=== PATIENT | male | born 1935 | race Caucasian/White ===

== ENCOUNTER 2016-10-06 07:35 | Inpatient (IN) | payer OTHER ==
[~2016-10-06] VITALS: Ht 175.3 cm; Wt 87.4 kg
[2016-10-06] VITALS (11 sets, daily range): BP systolic 119–173; BP diastolic 70–109
[~2016-10-06 07:35] MED LIST: CHOLESTEROL; HIGH BLOOD PRESSURE
[2016-10-06 09:07] LABS: HEMATOCRIT 45.3 % (38.0-50.0); MCH 30.9 PG (29.0-34.0); MCHC 34.9 G/DL (30.0-36.0); MCV 88.6 FL (86-99); MEAN PLAT.VOLUME 9.5 uM^3 (9.0-12.4); PLATELET COUNT 227 K/uL (156-360); RBC DIS.WIDTH-SD 41.7 % (39-53); RED BLOOD COUNT 5.11 M/uL (4.00-5.50); WHITE BLOOD COUNT 10.4 K/uL (4.1-10.2)
[2016-10-06 09:21] LABS: CHLORIDE 104 mEq/L (99-109); POTASSIUM 3.6 mEq/L (3.7-5.4); SODIUM 141 mEq/L (136-147)
[2016-10-06 09:23] LABS: GLUCOSE 116 mg/dL (70-99)
[2016-10-06 09:24] LABS: ANION GAP 11 MEQ/L (2-14)
[2016-10-06 09:25] LABS: TOTAL BILIRUBIN 0.8 mg/dL (0.0-1.0)
[2016-10-06 09:27] LABS: ALKALINE PHOSPHATASE 113 IU/L (3-129); GFR ESTIMATE (CALCULATED) > 59 mL/min/
[2016-10-06 09:28] LABS: UREA NITROGEN (BUN) 14 mg/dL (9-23)
[2016-10-06 09:32] LABS: TROP-I INTERPRETATION NEGATIVE; TROPONIN-I 0.02 ng/mL (0.0-0.30)
[2016-10-06 09:51] LABS: ADD MIUA? NO; BILIRUBIN NEGATIVE; BLOOD NEGATIVE; COLOR YELLOW ((YELLOW)); GLUCOSE (STRIP) NEGATIVE; KETONES 5; LEUKOCYTES NEGATIVE; NITRITE NEGATIVE; PROTEIN (STRIP) 30; SPECIFIC GRAVITY 1.014 (1.000-1.030); UCUL ADDED? NO; UROBILINOGEN 0.2 MG/DL (0.2-1.0)
[2016-10-06] MEDS ORDERED: DONEPEZIL HCL5 MG PO (11:20)
[2016-10-06] MEDS ORDERED: ASPIR 8181 M1 PO (11:20)
[2016-10-06] MEDS ORDERED: SIMVASTATIN10 MG PO (11:20)
[2016-10-06] MEDS ORDERED: RAMIPRIL5 MG PO (11:20)
[2016-10-06] MEDS ORDERED: SINUS 12-HOUR120 MG PO (11:22)
[2016-10-06 15:06] LABS: METH RESISTANT S AUREUS PCR NEGATIVE (NEGATIVE)
[2016-10-06 15:17] LABS: PROBE CHECK PASS; SPECIMEN PROCESSING CONTROL PASS
[2016-10-07] VITALS (13 sets, daily range): BP systolic 0–169; BP diastolic 0–95
[2016-10-07 06:30] LABS: ANION GAP 6 MEQ/L (2-14); CHLORIDE 103 MEQ/L (99-109); GFR ESTIMATE (CALCULATED) > 59 mL/min/; GLUCOSE 102 mg/dL (70-99); POTASSIUM 4.1 MEQ/L (3.7-5.4); SAMPLE HEMOLYSIS CHECK 0; SAMPLE ICTERIC CHECK 0; SAMPLE LIPEMIA CHECK 0; SODIUM 137 MEQ/L (136-147); UREA NITROGEN (BUN) 15 mg/dL (9-23)
[2016-10-07 06:52] LABS: HEMATOCRIT 41.1 % (38.0-50.0); MCH 31.8 PG (29.0-34.0); MCHC 34.5 G/DL (30.0-36.0); MCV 92.2 FL (86-99); MEAN PLAT.VOLUME 10.2 uM^3 (9.0-12.4); PLATELET COUNT 161 K/uL (156-360); RBC DIS.WIDTH-CV 13.1 % (11.8-14.6); RBC DIS.WIDTH-SD 43.7 % (39-53); RED BLOOD COUNT 4.46 M/uL (4.00-5.50)
[2016-10-07 06:53] LABS: WHITE BLOOD COUNT 5.9 K/uL (4.1-10.2)
[2016-10-07 10:39] LABS: TROP-I INTERPRETATION NEGATIVE; TROPONIN-I 0.02 ng/mL (0.0-0.30)
[2016-10-08] VITALS (10 sets, daily range): BP systolic 122–177; BP diastolic 63–98
[2016-10-08 05:17] LABS: EOSINOPHIL (%) 2.6 % (0-5); EOSINOPHIL COUNT 0.1 K/uL (0-0.3); HEMATOCRIT 45.1 % (38.0-50.0); IMMATURE GRANULOCYTE (%) 0.2 % (0.0-0.7); LYMPHOCYTE COUNT 0.8 K/uL (1.0-2.8); MCH 29.9 PG (29.0-34.0); MCHC 32.6 G/DL (30.0-36.0); MCV 91.9 FL (86-99); MONOCYTE (%) 12.1 % (3-12); MONOCYTE COUNT 0.7 K/uL (0-0.8); NEUTROPHIL (%) 70.7 % (45-76); NEUTROPHIL COUNT 3.8 K/uL (1.8-6.4); PLATELET COUNT 175 K/uL (156-360); RBC DIS.WIDTH-SD 43.3 % (39-53); RED BLOOD COUNT 4.91 M/uL (4.00-5.50); WHITE BLOOD COUNT 5.4 K/uL (4.1-10.2)
[2016-10-08 06:04] LABS: ALKALINE PHOSPHATASE 89 IU/L (3-129); ANION GAP 9 MEQ/L (2-14); CHLORIDE 101 MEQ/L (99-109); GFR ESTIMATE (CALCULATED) > 59 mL/min/; GLUCOSE 91 mg/dL (70-99); SAMPLE HEMOLYSIS CHECK 2; SAMPLE ICTERIC CHECK 0; SAMPLE LIPEMIA CHECK 0; SODIUM 139 MEQ/L (136-147); UREA NITROGEN (BUN) 18 mg/dL (9-23)
[2016-10-08 06:05] LABS: POTASSIUM 4.4 MEQ/L (3.7-5.4); TOTAL BILIRUBIN 0.9 MG/DL (0.0-1.0)
[2016-10-08 10:07] LABS: ADD MIUA? YES; BILIRUBIN NEGATIVE; BLOOD SMALL; COLOR YELLOW ((YELLOW)); GLUCOSE (STRIP) NEGATIVE; KETONES 5; LEUKOCYTES NEGATIVE; NITRITE NEGATIVE; PROTEIN (STRIP) NEGATIVE; SPECIFIC GRAVITY 1.013 (1.000-1.030); UROBILINOGEN 0.2 MG/DL (0.2-1.0)
[2016-10-08 10:22] LABS: BACTERIA NONE SEEN /HPF; EPITHELIAL CELLS NONE SEEN /HPF; MUCUS TRACE /LPF; WHITE BLOOD CELLS 0-5 /HPF (0-5)
[2016-10-09 03:21] VITALS: BP 124/66
[2016-10-09 08:17] VITALS: BP 167/76
[2016-10-09 16:00] VITALS: BP 148/86
[2016-10-09 23:29] VITALS: BP 173/103
[2016-10-09 23:51] VITALS: BP 160/86
[2016-10-10 07:05] VITALS: BP 144/80
== END 2016-10-10 14:07 | disposition home health service (06) | DRG 87 ==
LOC: EME 07:35 → EDOF 11:01 → 4WEST 11:01 → 3EAST 11:01 → 4WEST 13:31 → 3EAST 10-08 15:52
PROVIDERS: Emergency Medicine; Hospitalist; Internal Medicine Cardiovascular Disease
DX: S06.6X0A Traumatic subarachnoid hemorrhage without loss of consciousness, initial encounter (principal); R55 Syncope and collapse; R00.1 Bradycardia, unspecified; I10 Essential (primary) hypertension; F03.90 Unspecified dementia, unspecified severity, without behavioral disturbance, psychotic disturbance, mood disturbance, and anxiety; E78.5 Hyperlipidemia, unspecified; I25.10 Atherosclerotic heart disease of native coronary artery without angina pectoris; Z95.5 Presence of coronary angioplasty implant and graft; Y92.003 Bedroom of unspecified non-institutional (private) residence as the place of occurrence of the external cause; W01.0XXA Fall on same level from slipping, tripping and stumbling without subsequent striking against object, initial encounter
CPT/HCPCS: 70450; 71010; 80048; 80053; 81003; 82607; 84443; 84484; 85025; 85027; 87641; 93005; 94799; 97530 GO; 99281; 99285; J2405; J7030; J7040

== ENCOUNTER 2016-10-12 17:35 | Observation (INO) | payer OTHER ==
[~2016-10-12] VITALS: Ht 177.8 cm; Wt 85.5 kg
[~2016-10-12 17:35] MED LIST changes: +ASPIR 8181 M1 PO; +DONEPEZIL HCL5 MG PO; +RAMIPRIL5 MG PO; +SIMVASTATIN10 MG PO; +SINUS 12-HOUR120 MG PO
[2016-10-12 19:55] LABS: ADD MIUA? NO; BILIRUBIN NEGATIVE; BLOOD NEGATIVE; COLOR YELLOW ((YELLOW)); GLUCOSE (STRIP) NEGATIVE; KETONES 5; LEUKOCYTES NEGATIVE; NITRITE NEGATIVE; PROTEIN (STRIP) NEGATIVE; SPECIFIC GRAVITY 1.019 (1.000-1.030); UCUL ADDED? NO
[2016-10-12 20:26] LABS: CHLORIDE 102 mEq/L (99-109); POTASSIUM 4.1 mEq/L (3.7-5.4); SODIUM 139 mEq/L (136-147)
[2016-10-12 20:28] LABS: EOSINOPHIL (%) 0.4 % (0-5); HEMATOCRIT 46.3 % (38.0-50.0); IMMATURE GRANULOCYTE (%) 0.4 % (0.0-0.7); INSTRUMENT ABS NEUTROPHIL CT 3.5 K/uL; MCH 30.5 PG (29.0-34.0); MCHC 33.7 G/DL (30.0-36.0); MCV 90.4 FL (86-99); MEAN PLAT.VOLUME 9.3 uM^3 (9.0-12.4); MONOCYTE (%) 11.3 % (3-12); MONOCYTE COUNT 0.6 K/uL (0-0.8); NEUTROPHIL (%) 68.8 % (45-76); NEUTROPHIL COUNT 3.5 K/uL (1.8-6.4); RBC DIS.WIDTH-CV 12.4 % (11.8-14.6); RBC DIS.WIDTH-SD 40.9 % (39-53); RED BLOOD COUNT 5.12 M/uL (4.00-5.50); WHITE BLOOD COUNT 5.1 K/uL (4.1-10.2)
[2016-10-12 20:29] LABS: GLUCOSE 101 mg/dL (70-99); PLATELET COUNT 244 K/uL (156-360)
[2016-10-12 20:30] LABS: ANION GAP 11 MEQ/L (2-14)
[2016-10-12 20:32] LABS: ALKALINE PHOSPHATASE 102 IU/L (3-129); GFR ESTIMATE (CALCULATED) > 59 mL/min/; TOTAL BILIRUBIN 1.2 mg/dL (0.0-1.0)
[2016-10-12 20:33] LABS: UREA NITROGEN (BUN) 16 mg/dL (9-23)
[2016-10-12 20:38] LABS: TROP-I INTERPRETATION NEGATIVE; TROPONIN-I 0.01 ng/mL (0.0-0.30)
[2016-10-12 21:06] LABS: INFLUENZA A VIRAL ANTIGEN NEGATIVE; INFLUENZA B VIRAL ANTIGEN NEGATIVE
[2016-10-13 01:35] VITALS: BP 104/78
[2016-10-13 03:32] VITALS: BP 140/74
[2016-10-13 06:43] LABS: HEMATOCRIT 42.9 % (38.0-50.0); MCH 30.6 PG (29.0-34.0); MCHC 33.6 G/DL (30.0-36.0); MCV 91.1 FL (86-99); MEAN PLAT.VOLUME 9.7 uM^3 (9.0-12.4); PLATELET COUNT 231 K/uL (156-360); RBC DIS.WIDTH-CV 12.5 % (11.8-14.6); RBC DIS.WIDTH-SD 41.9 % (39-53); RED BLOOD COUNT 4.71 M/uL (4.00-5.50); WHITE BLOOD COUNT 4.7 K/uL (4.1-10.2)
[2016-10-13 07:22] LABS: ANION GAP 8 MEQ/L (2-14); CHLORIDE 102 MEQ/L (99-109); GFR ESTIMATE (CALCULATED) > 59 mL/min/; GLUCOSE 84 mg/dL (70-99); POTASSIUM 3.5 MEQ/L (3.7-5.4); SAMPLE HEMOLYSIS CHECK 0; SAMPLE ICTERIC CHECK 0; SAMPLE LIPEMIA CHECK 0; SODIUM 137 MEQ/L (136-147); UREA NITROGEN (BUN) 16 mg/dL (9-23)
[2016-10-13 09:50] VITALS: BP 117/56
[2016-10-13 12:25] VITALS: BP 113/70
[2016-10-13 16:30] VITALS: BP 145/79
== END 2016-10-13 18:58 | disposition home health service (06) ==
LOC: EME 17:35 → 5WEST 23:33 → EDOF 23:33 → 5WEST 10-13 01:29
PROVIDERS: Emergency Medicine; Internal Medicine
DX: I95.1 Orthostatic hypotension (principal); R42 Dizziness and giddiness; E86.0 Dehydration; E87.6 Hypokalemia; S06.6X9D Traumatic subarachnoid hemorrhage with loss of consciousness of unspecified duration, subsequent encounter; S06.2X9D Diffuse traumatic brain injury with loss of consciousness of unspecified duration, subsequent encounter; W01.10XD Fall on same level from slipping, tripping and stumbling with subsequent striking against unspecified object, subsequent encounter; R51 Headache; R50.9 Fever, unspecified; I25.10 Atherosclerotic heart disease of native coronary artery without angina pectoris; I10 Essential (primary) hypertension; E78.5 Hyperlipidemia, unspecified; Z95.5 Presence of coronary angioplasty implant and graft; F03.90 Unspecified dementia, unspecified severity, without behavioral disturbance, psychotic disturbance, mood disturbance, and anxiety
CPT/HCPCS: 70450; 71020; 80048; 80053; 81003; 83605; 84484; 85025; 85027; 87040; 87502; 93005; 99281; 99285; G0378; G8978 GP CI; G8979 GP CH; J2405; J7030

== ENCOUNTER → 2016-12-21 | Outpatient (CLI) | payer OTHER | END | disposition home or self-care (01) | LOC: EEG 09:00 | DX: R55 Syncope and collapse (principal) | CPT/HCPCS: 95819 ==